=== PATIENT | male | born 1985 | race Caucasian/White ===

== ENCOUNTER 2017-03-19 17:52 | Emergency (ER) | payer BC ==
--- NOTE | 2017-03-19 18:12 | ERNOTE ---
ER Male HPI Stated Complaint: KIDNEY STONES Time Seen by Provider: 03/19/17 18:08 Source: patient Exam Limitations: no limitations Immunizations: IMMUNIZATION HX Immunizations Up to Date Yes Allergies/Adverse Reactions: Allergies No Known Allergies Allergy (Unverified 03/19/17 18:07) Home Medications: HOME MEDICATIONS Oxybutynin Chloride [Ditropan Xl] 15 mg PO DAILY 03/19/17 [Last Taken Unknown] oxyCODONE HCL/ACETAMINOPHEN [Percocet 5 MG/325 MG] 2 tab PO QID PRN 03/19/17 [ Last Taken Unknown] - History of Present Illness Narrative: Here for bilateral flank pain. Patient has a convoluted history of having had bilateral kidney stones 19 mm one 5 mm status post stent placement at [facility]. He states "I've got the run around at [facility]" patient indicates that he no longer wants to continue his care at [facility] and requests to go elsewhere to see another urologist. He is here for severe bilateral flank pain. Denies any fevers or chills or hematuria. He does have to [address] Review of Systems - Review of Systems Constitutional: Present: no symptoms reported EYE: Present: no symptoms reported ENT: Present: no symptoms reported Respiratory: Present: no symptoms reported Cardiology: Present: no symptoms reported Gastrointestinal/Abdominal: Present: See HPI Genitourinary: Present: See HPI Musculoskeletal: Present: no symptoms reported Skin: Present: no symptoms reported - Patient's Past Medical History Patient History - Medical: Kidney stone Patient History - Cardiac/Respiratory: No pertinent hx Patient History - Cancer: No Hx of Cancer Patient History - Surgical Procedures: Orthopedic - Social History Smoking Status: Never smoker - Immunizations Immunizations Up to Date: Yes Physical Exam - Physical Exam General Appearance: Present: wd/wn, alert, no apparent distress, other - at the time I examined the patient he had freshly had some Percocet so he was completely pain-free Neck: Present: normal inspection Respiratory: Present: no respiratory distress, normal breath sounds, no accessory muscle use, chest nontender, lungs clear Cardiovascular/Chest: Present: regular rate, rhythm, no murmur, normal peripheral pulses Gastrointestinal/Abdominal: Present: normal bowel sounds, nontender, soft, no organomegaly ED Progress - Results and Orders Patient's Lab Results:: I have reviewed the patient's lab results. - Vital Signs Patient's Vital Signs:: I have reviewed the patient's vital signs. Vital Signs: Vital Signs 03/19/17 18:02 Temperature 36.8 C Pulse Rate 93 Respiratory 12 Rate Blood Pressure 159/108 O2 Sat by Pulse 98 Oximetry - CT/Ultrasound CT/Ultrasound Narrative: CT was reviewed by radiologist results show and 10 mm stone on the right and 11 mm stone on the left and proximal ureters respectively at this time Dr. Gasca at [facility] urology was consult and he agreed to see the patient in his clinic at 9:00 in the morning on Wednesday. Patient will give be given enough pain medication until Wednesday. - Progress/Reassessment Chief Complaint: Genitourinary Problem Plan - Plan Plan: Patient is to follow-up with Dr. Gasca urologist at [facility] on Wednesday at 9 AM. Departure Clinical Impression: Nephrolithiasis - Departure Disposition: Home self-care Condition: Good Instructions: Kidney Stones, [id number] Additional Instructions: Please contact Dr. Gasca clinic at [facility] urology at area code [phone] on Wednesday and go to their clinic at 9:00. Please call them at 8:00 and presented to the clinic at 9 AM please do not eat or drink anything after Wednesday midnight Referrals: Florina Garcia, DO [Primary Care Provider] -
[2017-03-19 18:36] LABS: Hematocrit 40.3 % (42.0-52.0); Hemoglobin 14.3 gm/dL (13.5-18.0); Mean Cell Volume 86.9 fl (78-100); Mean Corpuscular Hemoglobin 30.8 pg (27-31); Mean Corpuscular Hgb Conc 35.5 g/dl (32-36); Mean Platelet Volume 10.1 fl (6.0-9.5); Neutrophil # 5.7 K/mm3 (1.3-6.0); Neutrophil % 55.9 % (42-75.0); Platelet Count 297 K/mm3 (150-450); Red Blood Count 4.64 M/mm3 (4.7-6.0); Red Cell Distribution Width 11.7 % (11.5-14.0); White Blood Count 10.2 K/mm3 (4.0-10.5)
[2017-03-19 18:50] LABS: Anion Gap 15.4 mmol/L (6.8-13.8); BUN/Creatinine Ratio 14.7 (9.0-21.6); Bilirubin, Total 0.5 mg/dL (0.0-1.1); Ca. Corrected For Albumin 8.8 mg/dL (8.4-10.2); Calcium * 9.1 mg/dL (7.9-10.9); Carbon Dioxide 26.3 mmol/L (24-32.6); Potassium 3.7 mmol/L (3.4-4.6); Total Protein 7.7 gm/dL (6.2-8.2)
[2017-03-19 19:06] LABS: Urine Appearance Bloody; Urine Bilirubin Negative (NEGATIVE); Urine Blood 250 /ul (NEGATIVE); Urine Color Yellow; Urine Ketone Negative (NEGATIVE)
[2017-03-19 19:07] LABS: Urine Bacteria None Seen; Urine Nitrite Negative (NEGATIVE); Urine Protein 100 mg/dL (NEGATIVE); Urine RBC >50 /hpf (0-5); Urine Urobilinogen Normal (NORMAL); Urine WBC 0-5 /hpf (0-5)
[2017-03-19 19:09] VITALS: BP 141/82
== END 2017-03-19 19:08 | disposition home or self-care (01) ==
LOC: ER 17:52
DX: N20.0 Calculus of kidney (principal); Z09 Encounter for follow-up examination after completed treatment for conditions other than malignant neoplasm; Z87.442 Personal history of urinary calculi

== ENCOUNTER 2017-03-26 11:17 | Day surgery (SDC) | payer BC ==
[~2017-03-26 11:17] MED LIST: CIPROFLOXACIN HCL 500 MG TABLET PO PRN
[2017-03-26] MEDS ORDERED: LIDOCAINE HCL 10 APPL CARTRIDGE TP ONE (12:35)
[2017-03-26 16:37] VITALS: BP 138/88
== END 2017-03-26 11:18 | disposition home or self-care (01) ==
LOC: AMB 11:17
PROVIDERS: ATTEND Urology
PROC: 0TP98DZ Removal of Intraluminal Device from Ureter, Via Natural or Artificial Opening Endoscopic (ICD-10-PCS; principal; 2017-03-26 12:00)
DX: N20.1 Calculus of ureter (principal); Z68.32 Body mass index [BMI] 32.0-32.9, adult; Z46.6 Encounter for fitting and adjustment of urinary device